=== PATIENT | male | born 1950 | race Caucasian/White ===

== ENCOUNTER → 2016-08-07 | Outpatient (CLI) | payer MEDICARE ==
[~2016-08-07] MED LIST: ASPIRIN81 M1 PO; FLEXERIL PO; FLOMAX0.4 M1 PO; LISINOPRIL20 MG PO; LORATADINE10 M1 PO; NORCO 7.5-3251 EACH PO; NORVASC10 MG PO; PLAVIX PO; VICODIN PO
--- NOTE | ~2016-08-07 | CR63 ---
[facility] A Service of [facility] RADIOLOGY TEXT RESULTS PATIENT: ANNETTE SANDERS LOCATION: [facility] : 50 UNIT #: [id number] AGE: [address]: Annette Salvador MD SEX: M ORDER DR: [id number] [address] [address] [id number] O MR#: [id number] Acc #: [id number] NAME: ANNETTE SANDERS : 1950 SEX: M STUDY DATE/TIME: 08/07/2016 11:04 UNIT: [facility] ROOM: STUDY DESCRIPTION: CR Chest 2 View Attending Physician: Annette Salvador M.D. Referring Physician: Annette Salvador M.D. Ordering Physician: Annette Salvador M.D. Primary Care Physician: Annette Salvador M.D. MEDICAL IMAGING REPORT This report is preliminary unless electronic signature is present. EXAM Chest 08/07/2016 [facility]. HISTORY 65-year-old male patient; short of air, wheezing past 2 weeks. Long-term smoker. High blood pressure. Previous stent placement. COMPARISON Chest 11/24/2015. FINDINGS 2-view chest demonstrates normal stable cardiac size and configuration. Hilar structures and mediastinal contours are preserved. There is generalized interstitial prominence in both lungs. I expect this represents chronic fibrosis, although the differential is somewhat lengthy. There are no coalescing infiltrates and no effusions. I see no pulmonary nodules. IMPRESSION Generalized pulmonary interstitial prominence in both lungs consistent with fibrosis. Correlate clinically. Consider high resolution chest CT. Dictated by... Sreekanth Morgan M.D. THIS IS AN ELECTRONICALLY VERIFIED REPORT Sreekanth Morgan M.D. at 08/08/2016 9:39 AM PEPE/denise TD: 08/07/2016 16:19 JOB #: [id number] [facility] A Service of [facility] RADIOLOGY TEXT RESULTS PATIENT: ANNETTE SANDERS LOCATION: [facility] : 50 UNIT #: [id number] AGE: [address]: Annette Salvador MD SEX: M ORDER DR: MEDICAL IMAGING REPORT Page 1 of 1
== END | disposition home or self-care (01) ==
LOC: SRAD 10:52
DX: R06.2 Wheezing (principal); R91.8 Other nonspecific abnormal finding of lung field
CPT/HCPCS: 71020

== ENCOUNTER → 2016-09-12 | Outpatient (CLI) | payer MEDICARE ==
--- NOTE | ~2016-09-12 | US6 ---
[facility] A Service of [facility] RADIOLOGY TEXT RESULTS PATIENT: ANNETTE SANDRES LOCATION: [facility] : 50 UNIT #: [id number] AGE: [address]: Annette Salvador MD SEX: M ORDER DR: [id number] [facility] [address] [place], [place] [address] [id number] O MR#: [id number] Acc #: [id number] NAME: ANNETTE SANDERS : 1950 SEX: M STUDY DATE/TIME: 09/12/2016 8:38 UNIT: [facility] ROOM: STUDY DESCRIPTION: US Abdominal Limited Attending Physician: Annette Salvador M.D. Referring Physician: Annette Salvador M.D. Ordering Physician: Annette Salvador M.D. Primary Care Physician: Annette Salvador M.D. MEDICAL IMAGING REPORT This report is preliminary unless electronic signature is present EXAM Ultrasound abdomen limited HISTORY Elevated levels of transaminases. Nonspecific. Elevated liver enzymes at appointment 2 weeks ago. Gallbladder removed. FINDINGS Real-time ultrasonography of the right upper quadrant performed. Comparison 11/17/2014. The visualized portions of pancreas are unremarkable. Some portions of pancreatic body and tail obscured by bowel gas artifact. The liver measures about 18.2 cm in greatest craniocaudal extent. Similar appearance on prior study. The hepatic parenchyma is increased in echogenicity relative to the prior examination suggesting fatty infiltration. No focal hepatic parenchymal abnormality is seen. The portal vein and inferior vena cava appear patent. The right kidney measures 11.31 cm in greatest length. No hydronephrosis or nephrolithiasis. No cystic or solid mass lesion and no perinephric fluid collection. There is no intra- or extrahepatic biliary ductal dilatation. The common duct measures 4.2 mm in diameter. The patient is status post cholecystectomy. No abnormal fluid collections in visualized right upper quadrant. IMPRESSION 1. Status post cholecystectomy. No biliary ductal dilatation. 2. Stable mild hepatic enlargement. 3. Fatty infiltration of liver without focal suspicious parenchymal abnormality seen. Fatty infiltration appears to have developed in the interval from October 2014. 4. Right kidney normal. 5. Visualized pancreas unremarkable. Some portions of pancreatic body and tail obscured by bowel gas artifact. If additional pancreatic imaging would assist in management, consider [facility]. [facility] A Service of [facility] RADIOLOGY TEXT RESULTS PATIENT: ANNETTE SANDERS LOCATION: [facility] : 50 UNIT #: [id number] AGE: [address]: Annette Salvador MD SEX: M ORDER DR: Dictated by... Quinn Morales M.D. THIS IS AN ELECTRONICALLY VERIFIED REPORT Quinn Morales M.D. at 09/12/2016 6:04 PM CHARLEY/alex TD: 09/12/2016 12:18 JOB #: [id number] MEDICAL IMAGING REPORT Page 1 of 1 COPY
== END | disposition home or self-care (01) ==
LOC: CGUS 07:00
DX: R74.0 Nonspecific elevation of levels of transaminase and lactic acid dehydrogenase [LDH] (principal); R16.0 Hepatomegaly, not elsewhere classified; K76.0 Fatty (change of) liver, not elsewhere classified; Z90.49 Acquired absence of other specified parts of digestive tract
CPT/HCPCS: 71250; 76705; 93306